=== PATIENT | female | born 1975 | race Two or more races ===

== ENCOUNTER 2018-08-21 17:09 | Emergency (ER) | payer BC ==
[~2018-08-21] VITALS: Ht 162.6 cm; Wt 68.9 kg
[2018-08-21 17:30] VITALS: BP 124/78
[2018-08-21] MEDS ORDERED: DIAZEPAM 5 MG TABLET ONE (17:53)
[2018-08-21] MEDS ORDERED: DIAZEPAM 5 MG TABLET PO ONE (18:00)
== END 2018-08-21 18:49 | disposition home or self-care (01) ==
LOC: ED 18:43
DX: S86.812A Strain of other muscle(s) and tendon(s) at lower leg level, left leg, initial encounter (principal); X58.XXXA Exposure to other specified factors, initial encounter; Y93.89 Activity, other specified; Y99.8 Other external cause status; Y92.009 Unspecified place in unspecified non-institutional (private) residence as the place of occurrence of the external cause
CPT/HCPCS: 99283; J7512